=== PATIENT | male | born 1970 | race American Indian/Alaskan Native ===

== ENCOUNTER 2016-08-23 15:26 | Emergency (ER) | payer OTHER ==
[2016-08-23 15:52] VITALS: BMI 29.4
[2016-08-23 15:54] VITALS: BP 133/81; PULSE 64; RESP 15; TEMP 97.9; O2SAT 97
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
== END 2016-08-23 16:57 | disposition home or self-care (01) ==
LOC: ED 15:26
DX: Z04.1 Encounter for examination and observation following transport accident (principal)

== ENCOUNTER 2017-09-21 18:49 | Emergency (ER) | payer OTHER ==
[2017-09-21 19:02] VITALS: BMI 30.4
[2017-09-21 19:04] VITALS: RESP 18; O2SAT 98
--- NOTE | 2017-09-21 19:50 | ED PDOC ---
Arrival/HPI <Walker Rust - Last Filed: 09/21/17 23:28> <Chuy Dougherty - Last Filed: 09/22/17 04:20> - General Chief Complaint: Male Genitourinary Time Seen by Provider: 09/21/17 19:04 - History of Present Illness Narrative History of Present Illness (Text): 46 year old male with a past medical history of testicular torsion s/p orchiectomy in August 2014 and herniated disc presents with left sided sharp, stabbing testicular pain and swelling that has been worsening the past few weeks. The patient reports this testicle has been enlarged for "so long I don't remember when it started." Patient reports nothing makes it better or worse. He describes his testicle as the size of a grapefruit. He denies any warmth or erythema to the testicle. He denies nausea, vomiting, or fever. Patient also reports constipation for most of his life. He reports having a bowel movement once a week. Patient denies heart palpitations, shortness of breath, constipation, diarrhea, dysuria, hematuria, or increased urinary frequency. (Chuy Dougherty) Past Medical History - Provider Review Nursing Documentation Reviewed: Yes - Infectious Disease Hx of Infectious Diseases: None - Tetanus Immunization Tetanus Immunization: Unknown - Past Medical History Past Medical History: No Previous - Cardiac Hx Cardiac Disorders: No Hx Hypertension: Yes - Pulmonary Hx Respiratory Disorders: No - Neurological Hx Neurological Disorder: No - HEENT Hx HEENT Disorder: No - Renal Hx Renal Disorder: No - Endocrine/Metabolic Hx Endocrine Disorders: No - Hematological/Oncological Hx Blood Disorders: No Hx Blood Transfusions: No Hx Blood Transfusion Reaction: No - Integumentary Hx Dermatological Disorder: No - Musculoskeletal/Rheumatological Hx Back Pain: Yes Hx Herniated Disk: Yes - Gastrointestinal Hx Gastrointestinal Ulcer: Yes - Genitourinary/Gynecological Other/Comment: R testicular sx /removal - Psychiatric Hx Psychophysiologic Disorder: No Hx Anxiety: No Hx Bipolar Disorder: No Hx Depression: No Hx Emotional Abuse: No Hx Hallucinations: No Hx Panic Disorder: No Hx Post Traumatic Stress Disorder: No Hx Psychosis: No Hx Physical Abuse: No Hx Schizophrenia: No Hx Sexual Abuse: No Hx Substance Use: No - Past Surgical History Past Surgical History: No Previous - Surgical History Other/Comment: right testicle removed - Anesthesia Hx Anesthesia: Yes Hx Anesthesia Reactions: No Hx Malignant Hyperthermia: No - Suicidal Assessment Feels Threatened In Home Enviroment: No <Chuy Dougherty - Last Filed: 09/22/17 04:20> Family/Social History - Physician Review Nursing Documentation Reviewed: Yes Family/Social History: Unknown Family HX Smoking Status: Light Smoker < 10 Cigarettes Daily Hx Alcohol Use: No Hx Substance Use: No Hx Substance Use Treatment: No <Chuy Dougherty - Last Filed: 09/22/17 04:20> Allergies/Home Meds <Walker Rust - Last Filed: 09/21/17 23:28> <Chuy Dougherty - Last Filed: 09/22/17 04:20> Allergies/Adverse Reactions: Allergies shellfish derived Allergy (Verified 08/23/16 15:52) RASH seafood Allergy (Uncoded 08/23/16 15:52) RASH Home Medications: Home Meds Medication Instructions Recorded Confirmed Acetaminophen/Oxycodone Hydr 1 tab PO Q6H PRN 09/21/17 09/21/17 [Percocet 10/325 mg Tab] Review of Systems - Physician Review All systems were reviewed & negative as marked: Yes - Review of Systems Constitutional: Normal Eyes: Normal ENT: Normal Respiratory: Normal Cardiovascular: Chest Pain (does not have it now, but comes and goes randomly) Gastrointestinal: Constipation (not acute). absent: Diarrhea, Nausea, Vomiting Genitourinary Male: Normal, Other (swollen and tender left testicle). absent: Dysuria, Frequency, Hematuria Musculoskeletal: Back Pain Skin: Normal Neurological: Normal <Chuy Dougherty - Last Filed: 09/22/17 04:20> Physical Exam <Walker Rust - Last Filed: 09/21/17 23:28> Vital Signs Reviewed: Yes Temperature: Afebrile Blood Pressure: Normal Pulse: Regular Respiratory Rate: Normal Appearance: Positive for: Well-Appearing Pain Distress: None Mental Status: Positive for: Alert and Oriented X 3 - Systems Exam Head: Present: Atraumatic, Normocephalic Pupils: Present: PERRL Extroacular Muscles: Present: EOMI Conjunctiva: Present: Normal Nose (External): Present: Atraumatic Respiratory/Chest: Present: Clear to Auscultation Cardiovascular: Present: Regular Rate and Rhythm Abdomen: Present: Normal Bowel Sounds. No: Tenderness, Distention Genitourinary Male: Present: Testicle Tenderness, Testicle Swelling. No: Erythema Upper Extremity: Present: Normal Inspection, Normal ROM, NORMAL PULSES Lower Extremity: Present: Normal Inspection, NORMAL PULSES, Normal ROM Neurological: Present: GCS=15, CN II-XII Intact, Speech Normal, Motor Func Grossly Intact Skin: Present: Warm, Dry, Normal Color Psychiatric: Present: Alert, Oriented x 3, Normal Insight, Normal Concentration <Chuy Dougherty - Last Filed: 09/22/17 04:20> Vital Signs Temp Pulse Resp BP Pulse Ox 09/21/17 23:15 98.3 F 82 18 130/76 98 09/21/17 19:03 98.4 F 74 18 127/80 98 Medical Decision Making <Walker Rust - Last Filed: 09/21/17 23:28> <Chuy Dougherty - Last Filed: 09/22/17 04:20> ED Course and Treatment: 09/21/17 21:52 Edgar Wagner is a 46 year old male who presents to the emergency department with a complaint of 3 week duration, worsening left sided testicular pain and swelling. In agreement with resident note which contains more details about the patient. Patient was seen and evaluated with resident. Came up with plan and treatment together. EXAM: US Scrotum Dictated and Authenticated by: Quita Dominguez MD 09/21/2017 9:43 PM Eastern Time ([place] & [place]) CLINICAL HISTORY: 46 years old, male; Pain; Scrotum pain; Prior surgery; Surgery date: 6+ months; Surgery type: Rt testes removed; Additional info: Rule out testicular torsion TECHNIQUE: Real-time ultrasound of the scrotum with color Doppler and image documentation. COMPARISON: US - TESTES DUPLEX COMPLETE 2014-09-12 19:18 FINDINGS: Right testicle: 1.8 x 1.7 x 1.4 cm heterogenous echogenicity area noted in the testis. Possibility of a lesion cannot be excluded. Urology consult is advised. MRI evaluation is recommended for further evaluation to evaluate for any lesion on non-emergent basis. No torsion. Left testicle: See above. Epididymides: Epididymal cyst. Scrotum: Large hydroceles septated. IMPRESSION: 1. 1.8 x 1.7 x 1.0 cm heterogenous echogenicity area noted in the testis. Possibility of a lesion cannot be excluded. Urology consult is advised. MRI evaluation is recommended for further evaluation to evaluate for any lesion on non-emergent basis. 2. Large hydroceles septated. Addendum created by Quita Dominguez MD on 09/21/2017 10:03 PM Eastern Time ([place] & [place]) The right testes has been removed. The heterogenous areas in the left testis. Initial Report created on 09/21/2017 9:43 PM Eastern Time ([place] & [place]) (Walker Rust) Impression: 46 year old male with a past medical history of testicular torsion s /p orchiectomy and herniated discs presents with worsening left sided testicular pain and swelling for 3 weeks. Assessment: Testicular torsion vs. orchitis vs. hydrocele vs. hematocele vs. testicular cancer Plan: Testicular ultrasound ordered to diagnose Testicular torsion vs. orchitis vs. hydrocele vs. hematocele Beta hCG ordered to rule out testicular cancer. CBC and CMP to evaluate for leukocytosis or electrolyte imbalances. Urinalysis/UC to rule out UTI, pyelonephritis, orchitis. 09/21/17 21:29 CBC, CMP, and Urinalysis are unremarkable. Beta hCG is within normal limits. 09/21/17 22:01 Testicular U/S: Dr. Dominguez called me and reported there is no testicular torsion. No acute findings. 09/21/17 22:23 Testicular Ultrasound results: 1. 1.8 x 1.7 x 1.0 cm heterogenous echogenicity area noted in the testis. Possibility of a lesion cannot be excluded. Urology consult is advised. MRI evaluation is recommended for further evaluation to evaluate for any lesion on non-emergent basis. 2. Large hydroceles septated. 09/21/17 23:15 Dr. Rust consulted with Dr. Jovel, his urologist, who advised that the patient should have an MRI done and gave the patient the option of staying in the hospital or following up with him at his office. The patient took the option of following up with Dr. Jovel at his office. Dr. Rust communicated the results of the testicular ultrasound to Dr. Jovel. Patient will follow up with Dr. Jovel. (Chuy Dougherty) - Lab Interpretations Lab Results: 09/21/17 20:10 09/21/17 20:10 Lab Results 09/21/17 20:10: Beta HCG, Quant < 2.39 09/21/17 20:10: Sodium 145, Potassium 3.9, Chloride 107, Carbon Dioxide 25, Anion Gap 17, BUN 13, Creatinine 1.1, Est GFR ( Amer) > 60, Est GFR (Non- Af Amer) > 60, Random Glucose 81, Calcium 9.1, Total Bilirubin 0.3, AST 30, ALT 24, Alkaline Phosphatase 55, Total Protein 7.6, Albumin 4.4, Globulin 3.2, Albumin/Globulin Ratio 1.4 09/21/17 20:10: Urine Color Light yellow, Urine Appearance Clear, Urine pH 6.0, Ur Specific [place] 1.020, Urine Protein Negative, Urine Glucose (UA) Negative, Urine Ketones Negative, Urine Blood Negative, Urine Nitrate Negative, Urine Bilirubin Negative, Urine Urobilinogen 0.2, Ur Leukocyte Esterase Negative 09/21/17 20:10: WBC 5.8 D, RBC 4.92, Hgb 14.3, Hct 40.0 L, MCV 81.3, MCH 29.1, MCHC 35.8, RDW 13.9, Plt Count 221, MPV 9.6, Gran % 48.4 L, Lymph % (Auto) 42.0 H, [place] % (Auto) 7.0 H, Eos % (Auto) 2.1, Baso % (Auto) 0.5, Gran # 2.83, Lymph # (Auto) 2.5, [place] # (Auto) 0.4, Eos # (Auto) 0.1, Baso # (Auto) 0.03 - RAD Interpretation Radiology Orders: 09/21/17 19:42 TESTES DUPLEX COMPLETE [US] Urgent 09/21/17 20:04 CHEST PORTABLE [RAD] Stat - Medication Orders Current Medication Orders: Discontinued Medications Ketorolac Tromethamine (Toradol) 15 mg IM STAT STA Stop: 09/21/17 21:49 Last Admin: 09/21/17 22:36 Dose: Not Given Non-Admin Reason: Patient Refused - Scribe Statement The provider has reviewed the documentation as recorded by the Scribe <Walker Rust - Last Filed: 09/21/17 23:28> - PA / BALL MAKER / Resident Statement DILIP has reviewed & agrees with the documentation as recorded. DILIP has examined the patient and agrees with the treatment plan. <Chuy Dougherty - Last Filed: 09/22/17 04:20> - Scribe Statement Minnie Lima Provider Scribe Attestation: All medical record entries made by the Scribe were at my direction and personally dictated by me. I have reviewed the chart and agree that the record accurately reflects my personal performance of the history, physical exam, medical decision making, and the department course for this patient. I have also personally directed, reviewed, and agree with the discharge instructions and disposition. (Walker Rust) Disposition/Present on Arrival <Walker Rust - Last Filed: 09/21/17 23:28> - Present on Arrival Any Indicators Present on Arrival: No History of DVT/PE: No History of Uncontrolled Diabetes: No Urinary Catheter: No History of Decub. Ulcer: No History Surgical Site Infection Following: None - Disposition Have Diagnosis and Disposition been Completed?: Yes Disposition Time: 23:18 Patient Plan: Discharge <Chuy Dougherty - Last Filed: 09/22/17 04:20> - Disposition Diagnosis: Hydrocele Disposition: HOME/ ROUTINE Condition: STABLE Discharge Instructions (ExitCare): Hydrocele Additional Instructions: EDGAR WAGNER, thank you for letting us take care of you today. Your provider was Walker Rust MD and Chuy Dougherty DO and you were treated for TESTICLES IN PAIN. The emergency medical care you received today was directed at your acute symptoms. You were evaluated for your testicular pain and swelling with a testicular ultrasound. You were found to not have any acute findings, such as testicular torsion. On ultrasound, hydrocele and lesion in the left testicle was found. Return to the Emergency Department if your symptoms worsen, do not improve, or if you have any other problems. Please contact Dr. Jovel for follow up regarding your testicular pain and swelling. Bring any paperwork you were given at discharge with you along with any medications you are taking to your follow up visit. Our treatment cannot replace ongoing medical care by a primary care provider outside of the emergency department. Thank you for allowing the [facility] team to be part of your care today. Referrals: Wes Valiente MD [Primary Care Provider] - Follow up with primary Diego Jovel MD [Staff Provider] - Follow up with primary Forms: [employer] (Hebrew)
[2017-09-21 20:27] LABS: URINE BILIRUBIN NEGATIVE (NEGATIVE); URINE BLOOD NEGATIVE (NEGATIVE); URINE GLUCOSE (UA) NEGATIVE (NEGATIVE); URINE LEUKOCYTE ESTERASE NEGATIVE Leu/uL (NEGATIVE); URINE PROTEIN NEGATIVE mg/dL (<30 mg/dL); URINE UROBILINOGEN 0.2 E.U./dL (<1 E.U./dL)
[2017-09-21 20:28] LABS: BASO # 0.03 K/mm3 (0.0-2.0); BASO % 0.5 % (0.0-3.0); EOS # 0.1 (0.0-0.7); EOS % 2.1 % (1.5-5.0); GRAN # 2.83 (1.4-6.5); GRAN % 48.4 % (50.0-68.0); HEMOGLOBIN 14.3 g/dL (14.0-18.0); LYMPH # 2.5 (1.2-3.4); MEAN CELL VOLUME 81.3 fl (80.0-105.0); MEAN CORPUSCULAR HEMOGLOBIN 29.1 pg (25.0-35.0); MEAN CORPUSCULAR HGB CONC 35.8 g/dl (31.0-37.0); MEAN PLATELET VOLUME 9.6 fl (7.0-11.0); MONO # 0.4 (0.1-0.6); RBC 4.92 10^6/uL (3.5-6.1); RED CELL DISTRIBUTION WIDTH 13.9 % (11.5-14.5); WHITE BLOOD COUNT 5.8 10^3/ul (4.5-11.0)
[2017-09-21 20:30] LABS: URINE APPEARANCE CLEAR (CLEAR); URINE COLOR LIGHT YELLOW (YELLOW)
[2017-09-21 20:41] LABS: ALB/GLOB RATIO 1.4 (1.1-1.8); ALBUMIN 4.4 g/dL (3.0-4.8); ALT/SGPT 24 U/L (7-56); AST/SGOT 30 U/L (17-59); BLOOD UREA NITROGEN 13 mg/dL (7-21); CALCIUM 9.1 mg/dL (8.4-10.5); GFR AFRICAN-AMERICAN > 60; GFR NON-AFRICAN AMERICAN > 60
[2017-09-21 23:59] VITALS: BP 130/76; PULSE 82; TEMP 98.3
--- NOTE | 2017-09-22 10:46 | RAD ---
Date of service: 09/21/2017 HISTORY: r/o infiltrate COMPARISON: No prior. FINDINGS: LUNGS: No active pulmonary disease. PLEURA: No significant pleural effusion identified, no pneumothorax apparent. CARDIOVASCULAR: Normal. OSSEOUS STRUCTURES: No significant abnormalities. VISUALIZED UPPER ABDOMEN: Normal. OTHER FINDINGS: None. IMPRESSION: No active disease.
--- NOTE | 2017-09-22 13:58 | US ---
Date of service: 09/21/2017 HISTORY: rule out testicular torsion TECHNIQUE: Realtime sonography through the scrotum with color and doppler flow. COMPARISON: 09/12/2014 FINDINGS: RIGHT TESTICLE: Post orchiectomy LEFT TESTICLE: Measures 4 x 4.3 x 4.4 cm. Central area of abnormal echogenicity 1.7 x 1.8 x 1.4 cm. The findings are more likely to be infectious/ inflammatory than neoplastic. There is no discrete mass, the area is vascular. LEFT EPIDIDYMIS: Epididymal head measures 1 x 1.9 cm. Simple cysts again identified 0.9 cm HYDROCELE: Large, complex multi-septated left hydrocele. Similar findings identified previously. VARICOCELE: None. OTHER FINDINGS: None. IMPRESSION: Status post right orchiectomy. Left testicle: Area of abnormal echogenicity centrally without discrete mass although there is increased vascularity. The findings are not typical for tumor, more likely reflective of infectious/inflammatory process. Stable findings right epididymis. Complex septated large left hydrocele.
--- NOTE | 2017-09-22 18:46 | CARD ---
APPROVED REPORT Date of service: 09/21/2017 EKG Measurement Heart [id number] <Conclusion> Sinus bradycardia Otherwise normal ECG
== END 2017-09-21 23:15 | disposition home or self-care (01) ==
LOC: ED 18:49
DX: N43.3 Hydrocele, unspecified (principal); I10 Essential (primary) hypertension; F17.210 Nicotine dependence, cigarettes, uncomplicated

== ENCOUNTER 2017-12-08 12:21 | Emergency (ER) | payer OTHER ==
[2017-12-08 16:32] VITALS: BMI 30.8
== END 2017-12-08 13:04 | disposition left against medical advice (07) ==
LOC: ED 12:21
DX: Z02.89 Encounter for other administrative examinations (principal); R10.9 Unspecified abdominal pain

== ENCOUNTER 2017-12-08 16:25 | Emergency (ER) | payer OTHER ==
[2017-12-08 16:31] VITALS: RESP 18; TEMP 98.3; O2SAT 97
[2017-12-08 16:32] VITALS: BMI 30.8
--- NOTE | 2017-12-08 17:32 | ED PDOC ---
Arrival/HPI - General Historian: Patient - History of Present Illness Narrative History of Present Illness (Text): 12/08/17 17:26 47yr old male presents today with a 2 day history of right sided flank/abd pain. pt states symptoms started after moving a fridge. pt states he is having gas pain. pt states he has been belching frequently. pt denies cp or sob. no dizziness or weakness. pt denies any urinary symptoms. no bladder or bowel incontinence. no fever/chills. no medications have been taken for pain. pt states pain worsens with twisting movement. Time/Duration: Other (2 days) Symptom Onset: Gradual Quality: Aching Severity Level: Mild <Chana Zuleta - Last Filed: 12/09/17 01:25> <Rick Thomas - Last Filed: 12/11/17 07:28> - General Chief Complaint: Back Pain Time Seen by Provider: 12/08/17 16:32 Past Medical History - Provider Review Nursing Documentation Reviewed: Yes - Travel History Have you recently traveled outside [place] w/in the past 3 mons?: No - Infectious Disease Hx of Infectious Diseases: None - Tetanus Immunization Tetanus Immunization: Unknown - Past Medical History Past Medical History: No Previous - Cardiac Hx Cardiac Disorders: No Hx Hypertension: Yes - Pulmonary Hx Respiratory Disorders: No - Neurological Hx Neurological Disorder: No - HEENT Hx HEENT Disorder: No - Renal Hx Renal Disorder: No - Endocrine/Metabolic Hx Endocrine Disorders: No - Hematological/Oncological Hx Blood Disorders: No Hx Blood Transfusions: No Hx Blood Transfusion Reaction: No - Integumentary Hx Dermatological Disorder: No - Musculoskeletal/Rheumatological Hx Back Pain: Yes Hx Herniated Disk: Yes - Gastrointestinal Hx Gastrointestinal Ulcer: Yes - Genitourinary/Gynecological Other/Comment: R testicular sx /removal - Psychiatric Hx Psychophysiologic Disorder: No Hx Anxiety: No Hx Bipolar Disorder: No Hx Depression: No Hx Emotional Abuse: No Hx Hallucinations: No Hx Panic Disorder: No Hx Post Traumatic Stress Disorder: No Hx Psychosis: No Hx Physical Abuse: No Hx Schizophrenia: No Hx Sexual Abuse: No Hx Substance Use: No - Past Surgical History Past Surgical History: No Previous - Surgical History Other/Comment: right testicle removed - Anesthesia Hx Anesthesia: Yes Hx Anesthesia Reactions: No Hx Malignant Hyperthermia: No - Suicidal Assessment Feels Threatened In Home Enviroment: No <Chana Zuleta - Last Filed: 12/09/17 01:25> Family/Social History - Physician Review Nursing Documentation Reviewed: Yes Family/Social History: Unknown Family HX Smoking Status: Light Smoker < 10 Cigarettes Daily Hx Alcohol Use: No Hx Substance Use: No Hx Substance Use Treatment: No <Chana Zuleta - Last Filed: 12/09/17 01:25> Allergies/Home Meds <Chana Zuleta - Last Filed: 12/09/17 01:25> <Hong Thomasyl - Last Filed: 12/11/17 07:28> Allergies/Adverse Reactions: Allergies shellfish derived Allergy (Verified 08/23/16 15:52) RASH seafood Allergy (Uncoded 08/23/16 15:52) RASH Home Medications: Home Meds Medication Instructions Recorded Confirmed Acetaminophen/Oxycodone Hydr 1 tab PO Q6H PRN 09/21/17 12/08/17 [Percocet 10/325 mg Tab] Review of Systems - Review of Systems Constitutional: absent: Fatigue, Fevers ENT: absent: Sore Throat, Epistaxis, Sinus Congestion Respiratory: absent: SOB, Cough Cardiovascular: absent: Chest Pain, Palpitations Gastrointestinal: Abdominal Pain. absent: Constipation, Diarrhea, Nausea, Vomiting Genitourinary Male: absent: Dysuria, Frequency, Hematuria Musculoskeletal: Back Pain. absent: Arthralgias, Neck Pain Skin: absent: Rash, Pruritis Neurological: absent: Headache, Dizziness Psychiatric: absent: Anxiety, Depression, Suicidal Ideation <Chana Zuleta - Last Filed: 12/09/17 01:25> Physical Exam Vital Signs Reviewed: Yes Vital Signs Temp Pulse Resp BP Pulse Ox 12/08/17 16:30 98.3 F 70 18 119/75 97 Temperature: Afebrile Blood Pressure: Normal Pulse: Regular Respiratory Rate: Normal Appearance: Positive for: Well-Appearing, Non-Toxic, Comfortable Pain Distress: None Mental Status: Positive for: Alert and Oriented X 3 - Systems Exam Head: Present: Atraumatic Mouth: Present: Moist Mucous Membranes Neck: Present: Normal Range of Motion Respiratory/Chest: Present: Clear to Auscultation, Good Air Exchange. No: Respiratory Distress, Accessory Muscle Use Cardiovascular: Present: Regular Rate and Rhythm, Normal S1, S2. No: Murmurs Abdomen: No: Tenderness, Distention, Peritoneal Signs, Rebound, Guarding Back: Present: Normal Inspection. No: Midline Tenderness, Paraspinal Tenderness Upper Extremity: Present: Normal ROM Lower Extremity: Present: Normal ROM Neurological: Present: GCS=15, Speech Normal Skin: Present: Warm, Dry, Normal Color. No: Rashes Psychiatric: Present: Alert, Oriented x 3 <AzoDominic newsomeina T - Last Filed: 12/09/17 01:25> Vital Signs Temp Pulse Resp BP Pulse Ox 12/08/17 18:26 68 18 117/69 97 12/08/17 16:30 98.3 F 70 18 119/75 97 <Bosompem,Rick - Last Filed: 12/11/17 07:28> Medical Decision Making ED Course and Treatment: 12/08/17 18:09 Patient is nontoxic well appearing with stable vital signs presenting with right sided abdominal pain CBC wnl CMP wnl Lipase wnl cxr; wnl ekg; NSR at 63b/m No ST elevations; normal axis. Urinalysis: wnl CAT scan: FINDINGS: There is limited evaluation of the solid organs without the administration of IV contrast. LOWER THORAX: No visible consolidation, pleural effusion, or pneumothorax. LIVER: Unremarkable unenhanced appearance. GALLBLADDER AND BILE DUCTS: Unremarkable unenhanced appearance. PANCREAS: Unremarkable unenhanced appearance. SPLEEN: Unremarkable unenhanced appearance. ADRENALS: Unremarkable unenhanced appearance. KIDNEYS AND URETERS: No hydronephrosis or obstructing renal calculus. BLADDER: Under distended urinary bladder, otherwise unremarkable. REPRODUCTIVE: Partially imaged left-sided hydrocele. APPENDIX: The appendix appears within normal limits of caliber. No secondary signs of acute appendicitis. BOWEL: The stomach is nondistended. Lack of oral contrast limits evaluation for bowel pathology. The bowel loops a ppear within normal limits of caliber without evidence of intestinal obstruction. Mild to moderate constipation. PERITONEUM: No significant free fluid. No definite free air. LYMPH NODES: No bulky lymphadenopathy identified. VASCULATURE: No aortic aneurysm. BONES: Vacuum disc phenomenon at L5-S1. Mild degenerative changes. OTHER FINDINGS: None. IMPRESSION: Mild to moderate constipation. Partially imaged left-sided hydrocele. Additional findings as above. Patient reassessment: Pt is non toxic well appearing; no distress. he is continuing to refuse medications in ER. Discussed all results with patient in depth pt most likely with muscle strain; will d/c home with motrin and flexeril. advised f/u with PMD. advised immediate return if symptoms worsen,persist or if new symptoms develop. Patient verbalizes understanding of discharge instructions and need for immediate followup. all aspects of this case were discussed the attending of record. Impression: Abdominal pain Motrin every 6 hours as needed for pain Flexeril: 1 tablet every 8 hours as needed for muscle spasms; may cause drowsiness. Follow up with primary care physician within the next 2 days Return immediately if symptoms worsen persist or if new symptoms develop: High fevers, increasing pain, vomiting, diarrhea or any other concerning symptoms develop - RAD Interpretation Radiology Orders: 12/08/17 16:59 ABD & PELVIS W/O PO OR IV CONT [CT] Stat <Chana Zuleta T - Last Filed: 12/09/17 01:25> - Lab Interpretations Lab Results: 12/08/17 17:21 12/08/17 17:21 Lab Results 12/08/17 17:21: WBC 6.0, RBC 4.73, Hgb 13.8 L, Hct 39.4 L, MCV 83.3, MCH 29.2, MCHC 35.0, RDW 13.5, Plt Count 234, MPV 9.4, Gran % 48.2 L, Lymph % (Auto) 41.1 H, [place] % (Auto) 8.3 H, Eos % (Auto) 2.2, Baso % (Auto) 0.2, Gran # 2.89, Lymph # (Auto) 2.5, [place] # (Auto) 0.5, Eos # (Auto) 0.1, Baso # (Auto) 0.01 12/08/17 17:21: Sodium 142, Potassium 4.1, Chloride 106, Carbon Dioxide 30, Anion Gap 11, BUN 10, Creatinine 1.0, Est GFR ( Amer) > 60, Est GFR (Non- Af Amer) > 60, Random Glucose 85, Calcium 8.8, Total Bilirubin 0.4, AST 25, ALT 33, Alkaline Phosphatase 57, Total Protein 7.1, Albumin 4.2, Globulin 3.0, Albumin/Globulin Ratio 1.4, Lipase 109 12/08/17 17:10: Urine Color Light yellow, Urine Appearance Clear, Urine pH 7.0, Ur Specific [place] 1.010, Urine Protein Negative, Urine Glucose (UA) Negative, Urine Ketones Negative, Urine Blood Negative, Urine Nitrate Negative, Urine Bilirubin Negative, Urine Urobilinogen 1.0 H, Ur Leukocyte Esterase Negative - RAD Interpretation Radiology Orders: 12/08/17 16:59 ABD & PELVIS W/O PO OR IV CONT [CT] Stat 12/08/17 17:32 CHEST ONE VIEW [RAD] Stat <Rick Thomas - Last Filed: 12/11/17 07:28> - PA / CLAMMER / Resident Statement / has reviewed & agrees with the documentation as recorded. <Rick Thomas - Last Filed: 12/11/17 07:28> Disposition/Present on Arrival - Present on Arrival Any Indicators Present on Arrival: No History of DVT/PE: No History of Uncontrolled Diabetes: No Urinary Catheter: No History of Decub. Ulcer: No History Surgical Site Infection Following: None - Disposition Have Diagnosis and Disposition been Completed?: Yes Disposition Time: 17:37 Patient Plan: Discharge <Chana Zuleta - Last Filed: 12/09/17 01:25> <Rick Thomas - Last Filed: 12/11/17 07:28> - Disposition Diagnosis: Abdominal pain Disposition: HOME/ ROUTINE Condition: GOOD Discharge Instructions (ExitCare): Acute Abdomen (Belly Pain), Adult (DC), Flank Pain (DC) Additional Instructions: Motrin every 6 hours as needed for pain Flexeril: 1 tablet every 8 hours as needed for muscle spasms; may cause drowsiness. Follow up with primary care physician within the next 2 days Return immediately if symptoms worsen persist or if new symptoms develop: High fevers, increasing pain, vomiting, diarrhea or any other concerning symptoms develop Prescriptions: Cyclobenzaprine [Cyclobenzaprine HCl] 10 mg PO Q8 #6 tab Ibuprofen [Motrin] 600 mg PO Q6H PRN #20 tab PRN Reason: pain/fever reduction Referrals: Wes Valiente MD [Primary Care Provider] - Follow up with primary Jalil Hodge DO [Staff Provider] - Follow up with primary Forms: [employer] ([place]), WORK NOTE
[2017-12-08 17:38] LABS: URINE BILIRUBIN NEGATIVE (NEGATIVE); URINE BLOOD NEGATIVE (NEGATIVE); URINE GLUCOSE (UA) NEGATIVE (NEGATIVE); URINE LEUKOCYTE ESTERASE NEGATIVE Leu/uL (NEGATIVE); URINE PROTEIN NEGATIVE mg/dL (<30 mg/dL)
[2017-12-08 17:48] LABS: URINE APPEARANCE CLEAR (CLEAR); URINE COLOR LIGHT YELLOW (YELLOW)
[2017-12-08 17:49] LABS: BASO # 0.01 K/mm3 (0.0-2.0); BASO % 0.2 % (0.0-3.0); EOS # 0.1 (0.0-0.7); EOS % 2.2 % (1.5-5.0); GRAN # 2.89 (1.4-6.5); GRAN % 48.2 % (50.0-68.0); HEMOGLOBIN 13.8 g/dL (14.0-18.0); LYMPH # 2.5 (1.2-3.4); LYMPH % 41.1 % (22.0-35.0); MEAN CELL VOLUME 83.3 fl (80.0-105.0); MEAN CORPUSCULAR HEMOGLOBIN 29.2 pg (25.0-35.0); MEAN PLATELET VOLUME 9.4 fl (7.0-11.0); MONO # 0.5 (0.1-0.6); MONO % 8.3 % (1.0-6.0); RBC 4.73 10^6/uL (3.5-6.1); RED CELL DISTRIBUTION WIDTH 13.5 % (11.5-14.5)
--- NOTE | 2017-12-08 17:50 | RAD ---
Date of service: 12/08/2017 PROCEDURE: CHEST RADIOGRAPH, 1 VIEW HISTORY: Abdominal pain COMPARISON: 09/21/2017. FINDINGS: LUNGS: The lungs are well inflated and clear. PLEURA: No pneumothorax or pleural fluid seen. CARDIOVASCULAR: Normal. OSSEOUS STRUCTURES: No significant abnormalities. VISUALIZED UPPER ABDOMEN: Normal. OTHER FINDINGS: None. IMPRESSION: No active pulmonary disease.
[2017-12-08 17:53] LABS: ALB/GLOB RATIO 1.4 (1.1-1.8); ALBUMIN 4.2 g/dL (3.0-4.8); ALT/SGPT 33 U/L (7-56); AST/SGOT 25 U/L (17-59); BLOOD UREA NITROGEN 10 mg/dL (7-21); CALCIUM 8.8 mg/dL (8.4-10.5); GFR NON-AFRICAN AMERICAN > 60; LIPASE 109 U/L (23-300)
--- NOTE | 2017-12-08 18:04 | CT ---
PROCEDURE: CT Abdomen and Pelvis without Oral or IV contrast. HISTORY: right flank/ABDOMINAL PAIN COMPARISON: None available. TECHNIQUE: Contiguous axial images of the abdomen and pelvis. No oral or IV contrast administered. Coronal and Sagittal reformats generated and reviewed. Radiation dose: Total exam DLP = 1120.16 mGy-cm. This CT exam was performed using one or more of the following dose reduction techniques: Automated exposure control, adjustment of the mA and/or kV according to patient size, and/or use of iterative reconstruction technique. FINDINGS: There is limited evaluation of the solid organs without the administration of IV contrast. LOWER THORAX: No visible consolidation, pleural effusion, or pneumothorax. LIVER: Unremarkable unenhanced appearance. GALLBLADDER AND BILE DUCTS: Unremarkable unenhanced appearance. PANCREAS: Unremarkable unenhanced appearance. SPLEEN: Unremarkable unenhanced appearance. ADRENALS: Unremarkable unenhanced appearance. KIDNEYS AND URETERS: No hydronephrosis or obstructing renal calculus. BLADDER: Under distended urinary bladder, otherwise unremarkable. REPRODUCTIVE: Partially imaged left-sided hydrocele. APPENDIX: The appendix appears within normal limits of caliber. No secondary signs of acute appendicitis. BOWEL: The stomach is nondistended. Lack of oral contrast limits evaluation for bowel pathology. The bowel loops appear within normal limits of caliber without evidence of intestinal obstruction. Mild to moderate constipation. PERITONEUM: No significant free fluid. No definite free air. LYMPH NODES: No bulky lymphadenopathy identified. VASCULATURE: No aortic aneurysm. BONES: Vacuum disc phenomenon at L5-S1. Mild degenerative changes. OTHER FINDINGS: None. IMPRESSION: Mild to moderate constipation. Partially imaged left-sided hydrocele. Additional findings as above.
[2017-12-08 18:28] VITALS: BP 117/69; PULSE 68
--- NOTE | 2017-12-09 10:23 | CARD ---
APPROVED REPORT Date of service: 12/08/2017 EKG Measurement Heart [id number] <Conclusion> Normal sinus rhythm Normal ECG
== END 2017-12-08 18:38 | disposition home or self-care (01) ==
LOC: ED 16:25
DX: R10.9 Unspecified abdominal pain (principal); I10 Essential (primary) hypertension; F17.210 Nicotine dependence, cigarettes, uncomplicated